=== PATIENT | female | born 1990 ===

== ENCOUNTER 2019-08-01 09:37 | Inpatient (IN) | payer OTHER ==
[~2019-08-01 09:37] MED LIST: ELECTROLYTE-148 SOLN 1,000 ML IV SCH
[2019-08-01 11:12] LABS: BASO % 0.6 % (0-2.0); HEMOGLOBIN 11.2 GM/dL (10.7-15.3); LYMPH % 8.4 % (8-40); MCH 29.5 pg (25.7-33.7); MCHC 32.9 g/dl (32.0-36.0); MEAN CELL VOLUME 89.6 fl (80-96); MEAN PLT VOLUME 7.4 fl (7.5-11.1); MONO % 6.6 % (3.8-10.2); NEUT % 84.4 % (42.8-82.8); PLATELET COUNT 298 K/MM3 (134-434); RDW 15.7 % (11.6-15.6); WHITE BLOOD COUNT 14.2 K/mm3 (4.0-10.0)
--- NOTE | 2019-08-01 11:16 | CONSULT ---
Past Medical History, Laborist - Primary Care Physician PCP:: IsauroToi - Admission Chief Complaint: Patient postdates, in labor History of Present Illness: . DICK 08.01.2019 40wks 1day. Active labor. Ctx moderately dysfunctional. GBS pos., on Ampicillin. History Source: Patient Limitations to Obtaining History: No Limitations - Past Medical History INTELLECTUAL PROPERTY LAWYER: Denies/None Cardio/Vascular: Denies/None Pulmonary: Denies/None Gastrointestinal: Denies/None Hepatobiliary: Denies/None Renal/: Denies/None Reproductive: Denies/None Heme/Onc: Denies/None Infectious Disease: Denies/None Psych: Denies/None Musculoskeletal: Denies/None Rheumatology: Denies/None ENT: Denies/None Endocrine: Denies/None Dermatology: Denies/None - Past Surgical History Past Surgical History: Yes: None - Smoking History Smoking history: Never smoked Review of Systems - Review of Systems Constitutional: reports: No Symptoms Eyes: reports: No Symptoms HENT: reports: No Symptoms Neck: reports: No Symptoms Cardiovascular: reports: No Symptoms Respiratory: reports: No Symptoms Gastrointestinal: reports: No Symptoms Genitourinary: reports: No Symptoms Breasts: reports: No Symptoms Reported Musculoskeletal: reports: No Symptoms Integumentary: reports: No Symptoms Neurological: reports: No Symptoms Endocrine: reports: No Symptoms Hematology/Lymphatic: reports: No Symptoms Psychiatric: reports: No Symptoms Physical Exam - Maternity Constitutional: Yes: Well Nourished, No Distress, Calm Eyes: Yes: WNL, Conjunctiva Clear, EOM Intact HENT: Yes: WNL, Atraumatic, Normocephalic Neck: Yes: WNL, Supple, Trachea Midline Cardiovascular: Yes: WNL, Regular Rate and Rhythm Breast(s): Yes: WNL - Abdominal Exam/OB Fundal Height: 40 Number of Fetuses: Single Presentation: Vertex Contractions: Yes Regularity: Irregular Intensity: Mod/Strong Monitor Mode: External Heart Rate (range): 140 Heart Rate Location: [facility] [place] Category: I Accelerations: Uniform Decelerations: None - Vaginal Exam/OB Vaginal Bleediing: No Speculum Exam: No Dilatation (cm): 5 Effacement (%): 80 Amniotic Membrane Status: Bulging Amniotic Fluid: Yes: Meconium Stained Meconium: Light Presentation: Vertex/Position Station: -1 (Soft cx. Vertex still little high. OP?) - Physical Exam Musculoskeletal: Yes: WNL Extremities: Yes: WNL Integumentary: Yes: WNL ...Motor Strength: WNL Psychiatric: Yes: WNL Procedures, Laborist - Amniotic Membrane Amniotic Membrane Status: Ruptured - Amniotic Fluid Amniotic Membrane Fluid Description: Meconium Stained Problem List - Problems (1) Post-dates Code(s): O48.0 - POST-TERM (2) Active labor Code(s): SAO3433 - (3) GBS (group B Streptococcus carrier), +RV culture, currently Code(s): O99.820 - STREPTOCOCCUS B CARRIER STATE COMPLICATING (4) Meconium in amniotic fluid Code(s): P96.83 - MECONIUM STAINING Assessment/Plan Primigravida postdates in labor. OP? Ctx dysfunctional AROM - light mec. FH reactive, cat.1. GBS - on Ampicillin protocol Anticipating vaginal delivery. Anesthesia discussed. D/W pt., her family and Dr. Box.
[2019-08-01 11:20] VITALS: BMI 28.3
[2019-08-01] MEDS ORDERED: AMPICILLIN - 2 GM in SODIUM CHLORIDE 100 ML IVPB ONE (11:25)
[2019-08-01 11:34] LABS: BLOOD UREA NITROGEN 10.3 mg/dL (7-18); CALCIUM 8.5 mg/dL (8.5-10.1); CREATININE 0.9 mg/dL (0.55-1.3); POTASSIUM 3.9 mmol/L (3.5-5.1)
[2019-08-01 11:42] LABS: INR 0.9 (0.83-1.09); PROTHROMBIN TIME (PATIENT) 10.6 SEC (9.7-13.0)
[2019-08-01] MEDS ORDERED: OXYTOCIN 30 UNITS in 0.9% NS 30 UNIT/500 ML INFUS.BAG IVPB ONE (11:45)
[2019-08-01] MEDS ORDERED: FENTANYL/BUPIVACAINE/NS/PF - PCEA - 50 ML DISP.SYRIN EP ONE ×2 (12:02→15:49)
[2019-08-01] MEDS ORDERED: NALOXONE HCL 0.4 MG/ML VIAL IVPUSH PRN (12:50)
[2019-08-01] MEDS ORDERED: FENTANYL/BUPIVACAINE/NS/PF - PCEA - 50 ML DISP.SYRIN EP SCH (13:00)
[2019-08-01] MEDS ORDERED: OXYTOCIN 30 UNITS in 0.9% NS 30 UNIT/500 ML INFUS.BAG IVPB SCH (13:15)
--- NOTE | 2019-08-01 13:32 | HP ---
Past Medical History - Admission Chief Complaint: active laboring History of Present Illness: gdm on diet History Source: Patient Limitations to Obtaining History: No Limitations - Past Medical History ICING MAKER: No: Alzheimer's, CVA, Dementia, Migraine, Multiple Sclerosis, Peripheral Neuropathy, Parkinson's, Seizure, Syncope, TIA, Vertigo, Other Cardiovascular: No: AFIB, Aneurysm, Aortic Insufficiency, Aortic Stenosis, CAD, CHF, Deep Vein Thrombosis, HTN, Hyperlipdemia, [place], Mitral Insufficiency, Mitral Stenosis, Murmur, Pulmonary Hypertension, Other Pulmonary: No: Asthma, Bronchitis, Cancer, COPD, O2 Dependent, Pneumonia, Previously Intubated, Pulmonary Embolus, Pulmonary Fibrosis, Sleep Apnea, Other Gastrointestinal: No: Ascites, Cancer, Constipation, Crohn's Disease, Diverticulitis, Diverticulosis, Esophageal Varices, Gastritis, GERD, GI Bleed, Hemorrhoids, Hiatal Hernia, Inflamatory Bowel Disease, Irritable Bowel Disease, Pancreatitis, Peptic Ulcer Disease, Ulcerative Colitis, Other Hepatobiliary: No: Cirrhosis, Cholelithiasis, Cholecystitis, Choledocholithiasis , Hepatitis A, Hepatitis B, Hepatitis C, Other Renal/: No: Renal Failure, Renal Inusuff, BPH, Cancer, Hematuria, Hemodialysis , Neurogenic Bladder, Renal Calculi, UTI, Other Reproductive: No: Ectopic , Endometriosis, Fibroids, PID, Polycystic Ovary Syndrome, Postmenopausal, Other ...: 1 ...Para: 0 ...Term: 0 ...: 0 ...Spon : 0 ...Induced : 0 ...Multiple Gestation: 0 ... Weeks Gestation by Dates: 40.1 ...EDC by Dates: 07/31/19 Heme/Onc: No: Anemia, B12 Deficiency, Bleeding Disorder, Cancer, Current Chemotherapy, Current Radiation Therapy, Hemochromatosis, Hypercoaguable State, Myeloproliferative Synd, Sickle Cell Disease, Sickle Cell Trait, Thrombocytopenia, Other Infectious Disease: No: AIDS, C-Diff, Herpes Zoster, HIV, MRSA, STD's, Tuberculosis, VREF, Other Psych: No: Addictions, Anxiety, Bipolar, Depression, Panic, Psychosis, Schizophrenia, Other Musculoskeletal: No: Bursitis, Chronic low back pain, Hemiparesis, Hemiplegia, Osteoarthritis, Paraplegia, Other Rheumatology: No: Fibromyalgia, Gout, Lupus, Rheumatoid Arthritis, Sarcoidosis, Vasculitis, Other ENT: No: Allergic Rhinitis, Sinusitis, Other Endocrine: Yes: Other Dermatology: No: Basal Cell, Cellulitis, Eczema, Melanoma, Psoriasis, Squamous Cell, Other - Past Surgical History Past Surgical History: Yes: None. No: AAA Repair, AICD, Amputation, Appendectomy, Arthrosocopy, AV Fistula/Graft, Bariatric Surgery, Breast Biopsy, Bypass, CABG, Carotid Endarterectomy, Cataract Removal, Cholecystectomy, Colectomy, Colonoscopy, Colostomy, Craniotomy, , Cystectomy, Hernia Repair, Hysterectomy, Ileal Conduit, Ileosotomy, Joint Replacement, Kidney Transplant, Laminectomy, Liver Transplant, Mastectomy, Nephrectomy, Oopherectomy , Orchiectomy, Permanent Pacemaker, Prostatectomy, Splenectomy, Stent, Thoracotomy, TURP, Tonsillectomy, Tubal Ligation, Upper Endoscopy, Valve Replacement, Vasectomy, Vein Stripping/Ligation Hx Myomectomy: No Hx Transabdominal Cerclage: No - Advance Directives Advance Directives: Yes: Living Will - Smoking History Smoking history: Never smoked Have you smoked in the past 12 months: No - Alcohol/Substance Use Hx Alcohol Use: No History of Substance Use: reports: None - Social History Usual Living Arrangement: Yes: Alone Do you think of yourself as: Straight/Heterosexual ADL: Independent History of Recent Travel: No Home Medications - Allergies Allergies/Adverse Reactions: Allergies Allergy/AdvReac Type Severity Reaction Status Date / Time No Known Allergies Allergy Verified 08/01/19 10:43 - Home Medications Home Medications: Ambulatory Orders One Tablet 1 tab PO DAILY 08/01/19 Family Medical History Family History: Denies Review of Systems - Review of Systems Constitutional: reports: No Symptoms Eyes: reports: No Symptoms HENT: reports: No Symptoms Neck: reports: No Symptoms Cardiovascular: reports: No Symptoms Respiratory: reports: No Symptoms Gastrointestinal: reports: No Symptoms Genitourinary: reports: No Symptoms Breasts: reports: No Symptoms Reported Musculoskeletal: reports: No Symptoms Integumentary: reports: No Symptoms Neurological: reports: No Symptoms Endocrine: reports: No Symptoms Hematology/Lymphatic: reports: No Symptoms Psychiatric: reports: No Symptoms Pain Intensity: 6 Physical Exam - Maternity Vital Signs: Vital Signs Temperature 97.8 F 08/01/19 12:00 Pulse Rate 84 08/01/19 12:35 Respiratory Rate 18 08/01/19 12:35 Blood Pressure 114/60 08/01/19 12:35 O2 Sat by Pulse Oximetry (%) 100 08/01/19 12:35 Constitutional: Yes: Well Nourished, No Distress, Calm Eyes: Yes: WNL, Conjunctiva Clear, EOM Intact HENT: Yes: WNL, Atraumatic, Normocephalic Neck: Yes: WNL, Supple, Trachea Midline Cardiovascular: Yes: WNL, Regular Rate and Rhythm Lungs: Clear to auscultation Breast(s): Yes: WNL - Abdominal Exam/OB Fundal Height: 42 Number of Fetuses: Single Presentation: Vertex Contractions: Yes Regularity: Coupling Intensity: Mod/Strong Monitor Mode: External Heart Rate Location: [facility] Category: I Accelerations: Uniform Decelerations: None - Vaginal Exam/OB Vaginal Bleediing: No Speculum Exam: No Dilatation (cm): 3to 4 Effacement (%): 80 Amniotic Membrane Status: Bulging Presentation: Vertex/Position Station: -1 - Physical Exam Musculoskeletal: Yes: WNL Extremities: Yes: WNL Edema: Yes Edema: LUE: 1+, RUE: 1+, LLE: 1+, RLE: 1+ Integumentary: Yes: WNL Deep Tendon Reflex Grade: Normal +2 ...Motor Strength: WNL Psychiatric: Yes: WNL, Alert, Oriented - Labs Lab Results: CBC, BMP 08/01/19 11:00 08/01/19 11:00 Hemorrhage Risk Assessment - Risk Factors Medium Risk Factors: Yes: None High Risk Factors: Yes: None Risk Score: 1 Risk Level: Medium Risk Assessment/Plan: for laboring Assessment/Plan for arom, for pitocin, encourage epidural, pt decline now
--- NOTE | 2019-08-01 13:34 | PN ---
Progress Note (short form) - Note Progress Note: 12 45 pm , nst reactive, 4 to 5 cm , 80 %, -1, comfortable w epidural, continue pitocin, and epidural
[2019-08-01] MEDS: AMPICILLIN - 1 GM in SODIUM CHLORIDE 100 ML IVPB SCH ×3 (14:45→23:02)
[2019-08-01] MEDS ORDERED: AMPICILLIN SODIUM 1 GM VIAL ONE (14:47)
[2019-08-01] MEDS: FENTANYL/BUPIVACAINE/NS/PF - PCEA - 50 ML DISP.SYRIN EP SCH (15:13)
[2019-08-01] MEDS ORDERED: LIDO 2%/EPI 1:200000 PRESRVFRE (20 ML SDVIAL) ONE (17:27)
--- NOTE | 2019-08-01 17:32 | PN ---
Progress Note (short form) - Note Progress Note: 17 15pm 4 to 5 cm, 100.4 temp, fht tachy to 170 , 180, for c s as chorioamnionitis, and f t progress,
[2019-08-01] MEDS ORDERED: PROPOFOL 20 ML ONE (17:34)
[2019-08-01] MEDS ORDERED: OXYTOCIN 10 UNITS/ML VIAL ONE (17:47)
[2019-08-01] MEDS ORDERED: PHENYLEPHRINE HCL 10 MG/1 ML SINGLE DOSE VIAL ONE (17:56)
--- NOTE | 2019-08-01 18:31 | PN ---
Progress Note (short form) - Note Progress Note: I assisted Dr. Box in c/section fpr the entirety of the case. Problem List - Problems (1) Post-dates Code(s): O48.0 - POST-TERM (2) Active labor Code(s): [id number] - (3) GBS (group B Streptococcus carrier), +RV culture, currently Code(s): O99.820 - STREPTOCOCCUS B CARRIER STATE COMPLICATING (4) Meconium in amniotic fluid Code(s): P96.83 - MECONIUM STAINING
[2019-08-01] MEDS: OXYTOCIN 20 UNITS in 0.9% NS 20 UNIT/1,000 ML INFUS.BAG IV SCH (18:50)
[2019-08-01] MEDS ORDERED: CITRIC ACID/SODIUM CITRATE 30 ML UNIT-DOSE CUP PO ONE (19:00)
[2019-08-01] MEDS ORDERED: METHYLERGONOVINE MALEATE 0.2 MG/1 ML AMP IM PRN (19:01)
[2019-08-01] MEDS ORDERED: oxyCODONE HCL 5 MG TABLET PO PRN ×2 (19:01)
--- NOTE | 2019-08-01 19:09 | OP ---
Operative Note - Note: Operative Date: 08/01/19 Pre-Operative Diagnosis: chorioamnionitis Operation: primary lt c s Post-Operative Diagnosis: Same as Pre-op Surgeon: Toi Box Cook Box Filler: Francesco Motley Anesthesiologist/POLISHER DIAL: Cale Mansfield Anesthesia: Epidural Estimated Blood Loss (mls): 800 (methergen given for slight menorragia) Operative Report Dictated: Yes
[2019-08-01] MEDS ORDERED: OXYTOCIN 20 UNITS in 0.9% NS 20 UNIT/1,000 ML INFUS.BAG IV ONE ×2 (19:15→20:44)
[2019-08-02] MEDS: AMPICILLIN - 1 GM in SODIUM CHLORIDE 100 ML IVPB SCH ×3 (05:22→10:25)
[2019-08-02] MEDS: IBUPROFEN 800 MG/8 ML IJ IVPB PRN ×2 (06:31→13:40)
[2019-08-02 07:52] LABS: BASO % 0.2 % (0-2.0); HEMATOCRIT 26.1 % (32.4-45.2); HEMOGLOBIN 8.4 GM/dL (10.7-15.3); LYMPH % 6.3 % (8-40); MCHC 32.2 g/dl (32.0-36.0); MEAN PLT VOLUME 7.8 fl (7.5-11.1); MONO % 12.4 % (3.8-10.2); NEUT % 81.1 % (42.8-82.8); PLATELET COUNT 239 K/MM3 (134-434); RDW 15.5 % (11.6-15.6)
--- NOTE | 2019-08-02 10:09 | PN ---
Progress Note (short form) - Note Progress Note: Anesthesia post op note POD#1. S/P under epidural anesthesia. Pat seen and examined. VSS. Moving all extremities. No complaints. No apparent post anesthesia complications.
--- NOTE | 2019-08-02 10:11 | PN ---
Post Progress Note Post Day: 1 Type of Delivery: Primary C/S Vital Signs: Vital Signs Temperature 98.8 F 08/02/19 06:00 Pulse Rate 95 H 08/02/19 06:00 Respiratory Rate 20 08/02/19 06:00 Blood Pressure 110/66 08/02/19 06:00 O2 Sat by Pulse Oximetry (%) 99 08/01/19 19:45 Breast Exam: Yes: Soft Uterus: Yes: Fundus Firm, Fundus below umbilicus Incision: Yes: Dressing dry and intact, Sutures intact Abdomen/GI: Yes: Abdomen soft, Passing flatus, Tolerating PO Lochia: Yes: Serosa Lochia, amount: Small Extremities: Yes: Calves non-tender Perineum: Yes: Intact Activity: Ambulating - Labs Labs: CBC WBC 20.0 K/mm3 (4.0-10.0) H 08/02/19 07:15 RBC 2.90 M/mm3 (3.60-5.2) L 08/02/19 07:15 Hgb 8.4 GM/dL (10.7-15.3) L 08/02/19 07:15 Hct 26.1 % (32.4-45.2) L D 08/02/19 07:15 MCV 90.0 fl (80-96) 08/02/19 07:15 MCH 29.0 pg (25.7-33.7) 08/02/19 07:15 MCHC 32.2 g/dl (32.0-36.0) 08/02/19 07:15 RDW 15.5 % (11.6-15.6) 08/02/19 07:15 Plt Count 239 K/MM3 (134-434) 08/02/19 07:15 MPV 7.8 fl (7.5-11.1) 08/02/19 07:15 Absolute Neuts (auto) 16.2 K/mm3 (1.5-8.0) H 08/02/19 07:15 Neutrophils % 81.1 % (42.8-82.8) 08/02/19 07:15 Lymphocytes % 6.3 % (8-40) L D 08/02/19 07:15 Monocytes % 12.4 % (3.8-10.2) H D 08/02/19 07:15 Eosinophils % 0.0 % (0-4.5) 08/02/19 07:15 Basophils % 0.2 % (0-2.0) 08/02/19 07:15 Nucleated RBC % 0 % (0-0) 08/02/19 07:15 Assessment/Plan oob as much as possible
[2019-08-02] MEDS: ENOXAPARIN NA (PORCINE) 40 MG/0.4 ML DISP.SYRIN SQ SCH (10:26)
[2019-08-02 11:23] LABS: PLATELET ESTIMATE ADEQUATE
[2019-08-02] MEDS ORDERED: BISACODYL 10 MG SUPP.RECT RC PRN (19:01)
--- NOTE | 2019-08-02 20:40 | OP ---
DATE OF OPERATION: 08/01/2019 PREOPERATIVE DIAGNOSIS: Chorioamnionitis, failure to progress, and macrosomia. POSTOPERATIVE DIAGNOSIS: Chorioamnionitis, failure to progress, and macrosomia. PROCEDURE: Primary low-transverse section. SURGEON: Toi Box MD FILLER OPERATOR: Francesco Motley MD; Cale Mansfield MD ANESTHESIA: Epidural anesthesia. INDICATION: This is a 29-year-old female patient, 40 weeks 1 day , came in to the hospital in active labor. Patient was seen in the office at 8 o'clock in the morning and patient has been in labor since midnight. Patient was found to be 4 cm dilated, 80%, and -1. Patient was seen in from the office to the hospital to be admitted in active labor, jaclyn every 5 minutes. Patient was admitted and patient is group B streptococcus positive, received IV antibiotic for a few doses, and patient had artificial rupture of membranes at about 10:30 and patient was found to be 4 to 5 cm, 80%, -1, and light meconium, and the patient continued with the labor process, and the patient received Pitocin and patient also received epidural for pain medication around this time, 11 o'clock in the morning, and patient received epidural around the time, so patient continued with labor, was comfortable. Patient rechecked again about 2 o'clock and cervix still same, 4 to 5 cm, 80%, -1, and patient rechecked again about 4:30, 5:00, and patient had a fever at around this time, 100.2, and baby also had tachycardia 170, and at this time decision was made, and cervix still remained the same at 4 to 5 cm, and chorioamnionitis and failure to progress and patient anticipated to have a large baby of 8 pounds 10 ounces, and also baby was found to be OP presentation, so decision was made to take the patient for a primary low-transverse section. Patient was placed on operating table in supine position. Patient already had an epidural and was receiving it topped off, and patient was comfortable, so primary low-transverse section was made. Incision was made through skin and subcutaneous tissue until the fascia was nicked in the midline and fascia extended bilaterally. Intraperitoneal cavity was entered, bladder flap was now created, low transverse segment was entered. Baby delivered from OP presentation and baby was handed to the railroad emergency services manager after umbilical cord doubly clamped and cut. Cord blood gas obtained, placenta was removed. Uterus was closed in a single layer. We found boggy uterus, so Methergine was given for hemostasis reason. The patient tolerated the procedure well, was draining clear urine. Blood loss was about 800 mL. Bladder flap was closed, peritoneum was closed, fascia was closed, skin was closed. Both ovaries and fallopian tubes and uterus were within normal limits. Patient tolerated procedure well and was transferred to recovery room in stable condition. MD TOMAS [id number]
[2019-08-02] MEDS: SIMETHICONE 80 MG TAB.CHEW (FP) PO PRN (22:13)
[2019-08-02] MEDS: ACETAMINOPHEN 325 MG TABLET (FP) PO PRN (22:13)
[2019-08-02] MEDS: IBUPROFEN 600 MG TABLET (FP) PO PRN (22:13)
[2019-08-02] MEDS: FERROUS SO4 325 MG TABLET (FP) PO SCH (22:13)
[2019-08-02] MEDS: SENNOSIDES/DOCUSATE COMBO (SENNA PLUS) TABLET (UD) PO PRN (22:13)
[2019-08-03] MEDS: FERROUS SO4 325 MG TABLET (FP) PO SCH ×2 (09:26→21:05)
[2019-08-03] MEDS: ENOXAPARIN NA (PORCINE) 40 MG/0.4 ML DISP.SYRIN SQ SCH (09:26)
[2019-08-03] MEDS: SIMETHICONE 80 MG TAB.CHEW (FP) PO PRN ×2 (14:41→20:10)
--- NOTE | 2019-08-03 15:55 | PN ---
Post Progress Note Post Day: 2 Type of Delivery: Primary C/S Vital Signs: Vital Signs Temperature 98.4 F 08/03/19 07:15 Pulse Rate 93 H 08/03/19 07:15 Respiratory Rate 18 08/03/19 07:15 Blood Pressure 105/64 08/03/19 07:15 O2 Sat by Pulse Oximetry (%) 99 08/01/19 19:45 Breast Exam: Yes: Soft Uterus: Yes: Fundus Firm, Fundus below umbilicus, Non-tender Incision: Yes: Dressing dry and intact, Sutures intact Abdomen/GI: Yes: Abdomen soft, Passing flatus, Tolerating PO Lochia: Yes: Serosa Lochia, amount: Small Extremities: Yes: Calves non-tender Perineum: Yes: Intact Activity: Ambulating (tolerating diet well , oob as much as possible ) - Labs Labs: CBC WBC 20.0 K/mm3 (4.0-10.0) H 08/02/19 07:15 RBC 2.90 M/mm3 (3.60-5.2) L 08/02/19 07:15 Hgb 8.4 GM/dL (10.7-15.3) L 08/02/19 07:15 Hct 26.1 % (32.4-45.2) L D 08/02/19 07:15 MCV 90.0 fl (80-96) 08/02/19 07:15 MCH 29.0 pg (25.7-33.7) 08/02/19 07:15 MCHC 32.2 g/dl (32.0-36.0) 08/02/19 07:15 RDW 15.5 % (11.6-15.6) 08/02/19 07:15 Plt Count 239 K/MM3 (134-434) 08/02/19 07:15 MPV 7.8 fl (7.5-11.1) 08/02/19 07:15 Absolute Neuts (auto) 16.2 K/mm3 (1.5-8.0) H 08/02/19 07:15 Total Counted 100 08/02/19 07:15 Neutrophils % 81.1 % (42.8-82.8) 08/02/19 07:15 Neutrophils % (Manual) 78.0 % (42.8-82.8) 08/02/19 07:15 Band Neutrophils % 7.0 % 08/02/19 07:15 Lymphocytes % 6.3 % (8-40) L D 08/02/19 07:15 Lymphocytes % (Manual) 5.0 % (8-40) L 08/02/19 07:15 Monocytes % 12.4 % (3.8-10.2) H D 08/02/19 07:15 Monocytes % (Manual) 10 % (3.8-10.2) 08/02/19 07:15 Eosinophils % 0.0 % (0-4.5) 08/02/19 07:15 Basophils % 0.2 % (0-2.0) 08/02/19 07:15 Nucleated RBC % 0 % (0-0) 08/02/19 07:15 Hypochromia 2+ 08/02/19 07:15 Platelet Estimate Adequate 08/02/19 07:15 Platelet Comment No clotting detected 08/02/19 07:15 Platelet Comment Large platelets 08/02/19 07:15
[2019-08-03] MEDS: OXYTOCIN 20 UNITS in 0.9% NS 20 UNIT/1,000 ML INFUS.BAG IV SCH (19:42)
[2019-08-03] MEDS: FENTANYL/BUPIVACAINE/NS/PF - PCEA - 50 ML DISP.SYRIN EP SCH (19:42)
[2019-08-03] MEDS: SENNOSIDES/DOCUSATE COMBO (SENNA PLUS) TABLET (UD) PO PRN (21:04)
[2019-08-03] MEDS: ACETAMINOPHEN 325 MG TABLET (FP) PO PRN (21:08)
[2019-08-03] MEDS: IBUPROFEN 600 MG TABLET (FP) PO PRN (21:09)
--- NOTE | 2019-08-03 21:28 | DS ---
Physical Exam-SOFTWARE TECHNICIAN Vital Signs: Vital Signs Temperature 98.4 F 08/03/19 07:15 Pulse Rate 93 H 08/03/19 07:15 Respiratory Rate 18 08/03/19 07:15 Blood Pressure 105/64 08/03/19 07:15 O2 Sat by Pulse Oximetry (%) 99 08/01/19 19:45 Constitutional: Yes: Well Nourished, No Distress, Calm Eyes: Yes: WNL, Conjunctiva Clear, EOM Intact HENT: Yes: WNL, Atraumatic, Normocephalic Neck: Yes: WNL, Supple, Trachea Midline Cardiovascular: Yes: WNL, Regular Rate and Rhythm Respiratory: Yes: WNL, Regular, CTA Bilaterally Gastrointestinal: Yes: WNL, Normal Bowel Sounds, Soft ...Rectal Exam: Yes: WNL Renal/: Yes: WNL Pelvis: Yes: WNL External Genitalia: Yes: Normal Internal Exam Deferred: No Vaginal Exam: Yes: Normal Cervix: Yes: Normal Uterus: Yes: Normal Adnexa: Normal: Bilateral ....Post : Yes: Uterus firm, Uterus non-tender Breast(s): Yes: WNL Musculoskeletal: Yes: WNL Extremities: Yes: WNL Edema: Yes Edema: LUE: 1+, RUE: 1+, LLE: 1+, RLE: 1+ Integumentary: Yes: WNL Wound/Incision: Yes: Clean/Dry, Well Approximated Neurological: Yes: WNL, Alert, Oriented ...Motor Strength: WNL Psychiatric: Yes: WNL, Alert, Oriented Labs: CBC, BMP 08/02/19 07:15 08/01/19 11:00 Delivery - Delivery Section: Primary Type of Anesthesia: Epidural EBL (cc): 800 Delivery, Single - Stages of Labor Date 1st Stage Initiatied: 08/01/19 Time 1st Stage Initiated: 08:00 Date of Delivery: 08/01/19 Time of Delivery: 18:05 Time Placenta Delivered: 18:06 Placenta: Yes: Spontaneous - Condition of Infant Aircraft Mechanic Armament/Software Developer Consultant Present: Yes Name: Zohra Lopez Gender: Male Weight: 4.394 kg Position: OP Total Hours ROM (Hrs/Mins): 7Hrs/6Mins - 1 Minute Total Score: 8 5 Minutes Total Score: 9 - [place] Feeding Plan Initial Plan: Exclusive throughout hospitalization Benefits of Exclusively reinforced: Yes Discharge Summary Problems reviewed: Yes Reason For Visit: LABOR ADMIT Current Active Problems Active labor (Acute) GBS (group B Streptococcus carrier), +RV culture, currently (Acute) Meconium in amniotic fluid (Acute) Post-dates (Acute) Procedures: Principal: primary lt c s Other Procedures: none Hospital Course: un eventful Health Concerns: none Plan of Treatment: oob as much as possible Goals: return to work in 8 weeks Condition: Good - Instructions Diet, Activity, Other Instructions: call dr camacho for 2 weeks appointment Physical activity Resume your normal everyday activity as tolerated no heavy lifting or exercise until seen by your surgeon. You may walk unlimited alejandra of and climb stairs. You may resume driving the car when you feel safe and comfortable behind the wheel. No sexual activity as instructed. Wound care If you have a bandage, leave it on, and keep dry for 48-72 hours. After that time discard the outer bandage. If they are tapes on the skin under the out of bandage leave them in place. They will peel off in the next 7 to 10 days. Do Not Peel them off. You may shower the day after surgery. If there are tapes present on the skin, you may shower over them. Diet There are no dietary restrictions. Eat healthy, high-fiber foods. Drink 6 to 8 glasses of liquid each day. This will assist in keeping your bowels are regular. Pain management You may take Tylenol or acetaminophen or Ibuprofen (for example, Motrin, Advil etc.) from my pain prescription medication is ordered should be taken as prescribed for moderate to severe pain. Call MD for any of the following: Severe pain not relieved by medication Fever of 101 or higher Excessive bleeding or drainage on dressing Inability to urinate Referrals: Toi Camacho MD [Staff Physician] - Disposition: HOME - Home Medications Comprehensive Discharge Medication List: Ambulatory Orders One Tablet 1 tab PO DAILY 08/01/19 Prescription Drug Monitoring Program (I-STOP) results: I-STOP reviewed and no issues identified
[2019-08-04] MEDS: ENOXAPARIN NA (PORCINE) 40 MG/0.4 ML DISP.SYRIN SQ SCH (09:03)
[2019-08-04] MEDS: FERROUS SO4 325 MG TABLET (FP) PO SCH ×2 (09:04→21:11)
[2019-08-04] MEDS: SENNOSIDES/DOCUSATE COMBO (SENNA PLUS) TABLET (UD) PO PRN (21:12)
--- NOTE | 2019-08-04 21:45 | PN ---
Post Progress Note Post Day: 3 Type of Delivery: Primary C/S Vital Signs: Vital Signs Temperature 97.9 F 08/04/19 07:10 Pulse Rate 78 08/04/19 07:10 Respiratory Rate 18 08/04/19 07:10 Blood Pressure 112/74 08/04/19 07:10 O2 Sat by Pulse Oximetry (%) 99 08/01/19 19:45 Breast Exam: Yes: Soft Uterus: Yes: Fundus Firm, Fundus below umbilicus Incision: Yes: Dressing dry and intact, Sutures intact Abdomen/GI: Yes: Abdomen soft, Passing flatus, Tolerating PO Lochia: Yes: Serosa Lochia, amount: Small Extremities: Yes: Calves non-tender Perineum: Yes: Intact Activity: Ambulating (dc pt home tomorrow ) - Labs Labs: CBC WBC 20.0 K/mm3 (4.0-10.0) H 08/02/19 07:15 RBC 2.90 M/mm3 (3.60-5.2) L 08/02/19 07:15 Hgb 8.4 GM/dL (10.7-15.3) L 08/02/19 07:15 Hct 26.1 % (32.4-45.2) L D 08/02/19 07:15 MCV 90.0 fl (80-96) 08/02/19 07:15 MCH 29.0 pg (25.7-33.7) 08/02/19 07:15 MCHC 32.2 g/dl (32.0-36.0) 08/02/19 07:15 RDW 15.5 % (11.6-15.6) 08/02/19 07:15 Plt Count 239 K/MM3 (134-434) 08/02/19 07:15 MPV 7.8 fl (7.5-11.1) 08/02/19 07:15 Absolute Neuts (auto) 16.2 K/mm3 (1.5-8.0) H 08/02/19 07:15 Total Counted 100 08/02/19 07:15 Neutrophils % 81.1 % (42.8-82.8) 08/02/19 07:15 Neutrophils % (Manual) 78.0 % (42.8-82.8) 08/02/19 07:15 Band Neutrophils % 7.0 % 08/02/19 07:15 Lymphocytes % 6.3 % (8-40) L D 08/02/19 07:15 Lymphocytes % (Manual) 5.0 % (8-40) L 08/02/19 07:15 Monocytes % 12.4 % (3.8-10.2) H D 08/02/19 07:15 Monocytes % (Manual) 10 % (3.8-10.2) 08/02/19 07:15 Eosinophils % 0.0 % (0-4.5) 08/02/19 07:15 Basophils % 0.2 % (0-2.0) 08/02/19 07:15 Nucleated RBC % 0 % (0-0) 08/02/19 07:15 Hypochromia 2+ 08/02/19 07:15 Platelet Estimate Adequate 08/02/19 07:15 Platelet Comment No clotting detected 08/02/19 07:15 Platelet Comment Large platelets 08/02/19 07:15
--- NOTE | 2019-08-05 07:18 | PN ---
Post Progress Note Post Day: 1 Type of Delivery: Primary C/S Vital Signs: Vital Signs Temperature 99 F 08/04/19 22:00 Pulse Rate 80 08/04/19 22:00 Respiratory Rate 18 08/04/19 22:00 Blood Pressure 121/69 08/04/19 22:00 O2 Sat by Pulse Oximetry (%) 99 08/01/19 19:45 Breast Exam: Yes: Soft Uterus: Yes: Fundus Firm, Fundus below umbilicus Incision: Yes: Sutures intact Abdomen/GI: Yes: Abdomen soft, Passing flatus, Tolerating PO Lochia: Yes: Serosa Lochia, amount: Small Extremities: Yes: Calves non-tender Perineum: Yes: Intact Activity: Ambulating (dc pt home today) - Labs Labs: CBC WBC 20.0 K/mm3 (4.0-10.0) H 08/02/19 07:15 RBC 2.90 M/mm3 (3.60-5.2) L 08/02/19 07:15 Hgb 8.4 GM/dL (10.7-15.3) L 08/02/19 07:15 Hct 26.1 % (32.4-45.2) L D 08/02/19 07:15 MCV 90.0 fl (80-96) 08/02/19 07:15 MCH 29.0 pg (25.7-33.7) 08/02/19 07:15 MCHC 32.2 g/dl (32.0-36.0) 08/02/19 07:15 RDW 15.5 % (11.6-15.6) 08/02/19 07:15 Plt Count 239 K/MM3 (134-434) 08/02/19 07:15 MPV 7.8 fl (7.5-11.1) 08/02/19 07:15 Absolute Neuts (auto) 16.2 K/mm3 (1.5-8.0) H 08/02/19 07:15 Total Counted 100 08/02/19 07:15 Neutrophils % 81.1 % (42.8-82.8) 08/02/19 07:15 Neutrophils % (Manual) 78.0 % (42.8-82.8) 08/02/19 07:15 Band Neutrophils % 7.0 % 08/02/19 07:15 Lymphocytes % 6.3 % (8-40) L D 08/02/19 07:15 Lymphocytes % (Manual) 5.0 % (8-40) L 08/02/19 07:15 Monocytes % 12.4 % (3.8-10.2) H D 08/02/19 07:15 Monocytes % (Manual) 10 % (3.8-10.2) 08/02/19 07:15 Eosinophils % 0.0 % (0-4.5) 08/02/19 07:15 Basophils % 0.2 % (0-2.0) 08/02/19 07:15 Nucleated RBC % 0 % (0-0) 08/02/19 07:15 Hypochromia 2+ 08/02/19 07:15 Platelet Estimate Adequate 08/02/19 07:15 Platelet Comment No clotting detected 08/02/19 07:15 Platelet Comment Large platelets 08/02/19 07:15
[2019-08-05] MEDS: ENOXAPARIN NA (PORCINE) 40 MG/0.4 ML DISP.SYRIN SQ SCH (10:04)
[2019-08-05] MEDS: FERROUS SO4 325 MG TABLET (FP) PO SCH (10:04)
[2019-08-05] MEDS: SIMETHICONE 80 MG TAB.CHEW (FP) PO PRN (10:04)
[2019-08-05 10:28] VITALS: BP 136/74; PULSE 77; TEMP 98
--- NOTE | 2019-08-10 11:44 | PATH ---
Surgical Pathology Report Patient Name: PEGGY MCKEON Med. Rec. #: [id number] /Age/Gender: 1990 (Age: 29) / F Account: [id number] Location: [facility] [employer]BS/[employer] Taken: 08/01/2019 Received: 08/03/2019 Reported: 08/10/2019 Physicians: Toi Box MD Specimen(s) Received PLACENTA Clinical History , 40.1 weeks, primary for chorioamnionitis and failure to progress Final Diagnosis PLACENTA, SECTION: 546 G THIRD TRIMESTER PLACENTA WITH TRIVASCULAR UMBILICAL CORD AND PLACENTAL MEMBRANES WITH RARE MECONIUM-LADEN MACROPHAGES. Electronically Signed Kristine Almonte M.D. Gross Description The specimen is received fresh labeled placenta and is a 546 gram, 19.0 x 16.0 x 3.1 cm. placenta with attached membranes and umbilical cord. The attached membranes are chapman, translucent with focal opacities and insert marginally. The umbilical cord measures 30 cm. in length and averages 1.1 cm. in diameter. The cord inserts eccentrically, 3 cm. to the nearest margin. No true knots or strictures are identified. Cut surface of the umbilical cord reveals 3 vessels. The surface is muñiz-blue with minimal fibrin deposition and appropriate caliber vessels. The maternal surface is red-brown with focal defects. Sectioning reveals red-brown, spongy parenchyma. No lesions are identified. [employer] Lathe Operator sections are submitted in three cassettes as follows: 1- membrane rolls and umbilical cord; 2-3- full thickness sections of placenta. /08/07/2019 [facility]/08/07/2019
== END 2019-08-05 12:15 | disposition home or self-care (01) | DRG 540 ==
LOC: JLDR 09:37 → J3W 21:13
PROVIDERS: ADMIT Obstetrics & Gynecology; ATTEND Obstetrics & Gynecology
PROC: 10D00Z1 Extraction of Products of Conception, Low, Open Approach (ICD-10-PCS; principal; 2019-08-01)
DX: O62.1 Secondary uterine inertia (principal); O24.420 Gestational diabetes mellitus in childbirth, diet controlled; O36.63X0 Maternal care for excessive fetal growth, third trimester, not applicable or unspecified; O41.1230 Chorioamnionitis, third trimester, not applicable or unspecified; O48.0 Post-term pregnancy; Z3A.40 40 weeks gestation of pregnancy; Z22.330 Carrier of Group B streptococcus; Z37.0 Single live birth
CPT/HCPCS: 36415; 80048; 85025; 85610; 85730; 86593; 86850; 86900; 86901; 87389; 88307-TC